=== PATIENT | male | born 1955 | race Caucasian/White ===

== ENCOUNTER 2019-01-26 06:11 | Day surgery (SDC) | payer OTHER ==
[~2019-01-26] VITALS: Ht 172.7 cm; Wt 70.6 kg
[~2019-01-26 06:11] MED LIST: CYAN100T2 PO; DULO60 PO; NAPR220; OLME20 PO; TAMS.4ER PO
--- NOTE | 2019-01-26 07:52 | NUR ---
"DAY SURGERY RN | ADMIT This RN did not have computer access d/t computer error, and had the assitance of Judy Flanagan RN, and Sarah MILLER to get the patient ready for surgery. [facility] and [facility] is currently in the OR."
--- NOTE | 2019-01-26 12:53 | NUR ---
01/26/19 1253 Perry Graham CHART EDITED.
--- NOTE | 2019-01-26 18:55 | NUR ---
SHIFT SUMMARY PT HAD PROCEDURE TODAY. PT DRESSING TO R KNEE CONT TO BE C/D/I. POLAR PAC BEEN IN PLACE. PT SLEPT FOR A WHILE AND WOKE UP IN PAIN. PT BEEN MED FOR PAIN PRN. PT ATTEMPTED TO VOID BUT WAS UNABLE, PT STILL UNABLE TO VOID WHILE STANDING AT SIDE OF BED. PT BLADDER SCAN WAS 325. DISCUSSED PT VOIDING/NAVA. PT REPORTS WILL TRY LATER. PT BEEN SLEEPING MOST OF DAY SINCE BACK FROM HAVING PROCEDURE. CALL LIGHT IN REACH. BED ALARM IN PLACE.
[2019-01-27 04:53] LABS: BASOPHILS ABSOLUTE AUTO 0.01 K/mm3 (0.00-0.23); BASOPHILS PERCENT AUTO 0 % (0-2); EOSINOPHILS PERCENT AUTO 0 % (0-6); Hematocrit 43.2 % (37.0-53.0); Hemoglobin 14.1 g/dL (13.5-17.5); IMMATURE GRAN ABSOLUTE AUTO 0.06 K/mm3 (0.00-0.10); IMMATURE GRAN PERCENT AUTO 1 % (0-1); LYMPHOCYTES PERCENT AUTO 8 % (21-46); MONOCYTES ABSOLUTE AUTO 1.18 K/mm3 (0.16-1.47); MONOCYTES PERCENT AUTO 9 % (4-13); Mean Corpuscular HGB Conc 32.6 g/dL (31.5-36.5); Mean Corpuscular Volume 89 fL (80-100); Mean Platelet Volume 10.9 fL (9.1-12.4); NEUTROPHILS ABSOLUTE AUTO 10.93 K/mm3 (1.96-9.15); NEUTROPHILS PERCENT AUTO 83 % (41-73); Platelet Count 165 K/mm3 (150-400); RDW Coefficient Variation 14.6 % (11.7-14.2); RDW Standard Deviation 47.5 fL (35.1-46.3); Red Blood Cell Count 4.87 M/mm3 (4.30-5.90); White Blood Cell Count 13.18 K/mm3 (4.00-11.30)
[2019-01-27 05:12] LABS: Bun/Creatinine Ratio 18.5 (12.0-20.0); Calcium, Blood 8.1 mg/dL (8.5-10.1); Creatinine, Blood 1.89 mg/dL (0.60-1.20); Magnesium, Blood 1.9 mg/dL (1.6-2.4); Potassium, Blood 4.3 mmol/L (3.5-5.5)
[2019-01-27] MEDS ORDERED: ACETAMINOPHEN500 MG PO (09:55)
[2019-01-27] MEDS ORDERED: ASPI325EC PO (09:56)
[2019-01-27] MEDS ORDERED: ROXICODONE5 MG PO (09:56)
--- NOTE | 2019-01-27 10:39 | NUR ---
THERAPY IN WITH PT.
--- NOTE | 2019-01-27 14:52 | NUR ---
PT IV OUT WNL. PT AND FAMILY REPORTS UNDERSTANDING OF DISHCARGE INSTRUCTIONS. PT FAMILY WISHES TO GO GET PAIN MEDICATION FILLED BEFORE PT LEAVING.
--- NOTE | 2019-01-27 15:34 | NUR ---
PT FAMILY HERE. PT NOW READY TO GO. PT MED WITH TYLENOL BEFORE LEAVING.
== END 2019-01-27 15:36 | disposition home or self-care (01) ==
LOC: ORSCMMR 06:11 → ORD 07:30 → SURS 11:39 → ORSCMMR 01-27 15:36 → SURS 01-27 15:36
PROVIDERS: Orthopaedic Surgery
PROC: 0SRC0J9 Replacement of Right Knee Joint with Synthetic Substitute, Cemented, Open Approach (ICD-10-PCS; principal; 2019-01-26 07:30)
DX: M17.11 Unilateral primary osteoarthritis, right knee (principal); N18.3 Chronic kidney disease, stage 3 (moderate); Z79.899 Other long term (current) drug therapy
CPT/HCPCS: 36415; 73560-RT; 80048; 83735; 85025; 88300; 97110; 97116; 97161; 97530; C1713; C1776; J0171; J0690; J0735; J1100; J1170; J1885; J2250; J2370; J2405; J2704; J2795; J7120

== ENCOUNTER 2023-03-19 12:47 | Day surgery (SDC) | payer MEDICARE ==
[~2023-03-19] VITALS: Ht 172.7 cm; Wt 68.8 kg
[~2023-03-19 12:47] MED LIST changes: +ACETAMINOPHEN500 MG PO; +ASPI325EC PO; +ROXICODONE5 MG PO
[2023-03-19] MEDS ORDERED: SUMA25 PO (13:19)
[2023-03-19] MEDS ORDERED: THERA-D2000 UNIT PO (13:20)
--- NOTE | 2023-03-19 13:33 | NUR ---
03/19/23 1333 Geovanna Cleveland TETRACAINE DROP GIVEN AT 1320 IN LEFT EYE. PLEDGET FOAM PLACED AT 1321 IN LEFT EYE. PT TOLERATED WELL. CALL LIGHT IN REACH.
[2023-03-19 14:29] VITALS: BP 109/73
--- NOTE | 2023-03-19 14:34 | NUR ---
03/19/23 1434 GÓMEZ JENSEN IV REMOVED AT 1434, CANULA INTACT, SITE WNL. PT TOLERATED PROCEDURE WELL.
== END 2023-03-19 14:41 | disposition home or self-care (01) ==
LOC: ORSCSDS 12:47
PROVIDERS: Ophthalmology
PROC: 08DK3ZZ Extraction of Left Lens, Percutaneous Approach (ICD-10-PCS; principal; 2023-03-19 14:00)
DX: H25.13 Age-related nuclear cataract, bilateral (principal); I12.9 Hypertensive chronic kidney disease with stage 1 through stage 4 chronic kidney disease, or unspecified chronic kidney disease; N18.30 Chronic kidney disease, stage 3 unspecified; E78.5 Hyperlipidemia, unspecified; Z79.899 Other long term (current) drug therapy
CPT/HCPCS: J2250; J3010; J3301; J7040; V2632

== ENCOUNTER 2023-03-26 13:08 | Day surgery (SDC) | payer MEDICARE ==
[~2023-03-26] VITALS: Ht 172.7 cm; Wt 69.1 kg
[~2023-03-26 13:08] MED LIST changes: +SUMA25 PO; +THERA-D2000 UNIT PO
--- NOTE | 2023-03-26 14:52 | NUR ---
03/26/23 1452 Judy Poole ORD.SUPA PERFORMED PREP. [facility] PREP SECTION DOESN'T RECOGNIZE PNEUMONIC.
[2023-03-26 15:23] VITALS: BP 110/75
== END 2023-03-26 15:35 | disposition home or self-care (01) ==
LOC: ORSCSDS 13:08
PROVIDERS: Ophthalmology
PROC: 08RJ3JZ Replacement of Right Lens with Synthetic Substitute, Percutaneous Approach (ICD-10-PCS; principal; 2023-03-26 14:30)
DX: H25.11 Age-related nuclear cataract, right eye (principal); H52.201 Unspecified astigmatism, right eye; Z96.1 Presence of intraocular lens; I12.9 Hypertensive chronic kidney disease with stage 1 through stage 4 chronic kidney disease, or unspecified chronic kidney disease; N18.30 Chronic kidney disease, stage 3 unspecified; Z79.899 Other long term (current) drug therapy
CPT/HCPCS: J1100; J2250; J2405; J3010; J3301; J7040; V2632

== ENCOUNTER 2024-06-10 08:32 | Day surgery (SDC) | payer MEDICARE ==
[2024-06-10] VITALS (18 sets, daily range): BP systolic 120–158; BP diastolic 67–96
[~2024-06-10] VITALS: Ht 170.2 cm; Wt 70.9 kg
[~2024-06-10 08:32] MED LIST changes: +Acetaminophen 500 MG Tab PO SCH; +CeFAZolin Sodium 2,000 MG in NS 100 ML IV SCH; +Chlorhexidine Mouth Care 15 ML UDC MT SCH; +Lactated Ringer's 1,000 ML IV SCH; +OxyCODONE HCL 10 MG TABCR PO SCH; +Ropivacaine 0.5% HCl/Pf 123.125 MG,EPINEPHrine HCL 0.25 MG,Ketorolac Tromethamine 15 MG... INFIL SCH; +Tranexamic Acid 100 ML IV SCH; +Vancomycin HCL 1,000 MG in NS 250 ML IV SCH
[2024-06-10] MEDS ORDERED: propofoL 0 ML IV ONE (09:04)
[2024-06-10] MEDS ORDERED: CeFAZolin Sodium 2,000 MG VIAL ONE ×2 (09:07→18:46)
[2024-06-10] MEDS ORDERED: NS 100 ML IV ONE ×2 (09:07→18:46)
[2024-06-10] MEDS ORDERED: SILDENAFIL CITR50 MG PO (09:49)
[2024-06-10] MEDS ORDERED: PROPRANOLOL HCL80 MG PO (09:50)
[2024-06-10] MEDS ORDERED: Lactated Ringer's 1,000 ML IV SCH (10:35)
[2024-06-10] MEDS ORDERED: Magnesium Hydroxide Conc 10 ML UDC PO PRN (10:35)
[2024-06-10] MEDS ORDERED: Ondansetron HCl 2 MG / ML 2ML Vial IV PRN (10:40)
[2024-06-10] MEDS ORDERED: HYDROmorphone HCl/Pf 1MG SYR IV PRN (10:40)
[2024-06-10] MEDS ORDERED: Metoclopramide HCl 5MG / ML 2ML Vial IV PRN (10:40)
[2024-06-10] MEDS ORDERED: OxyCODONE HCL 5 MG TAB PO PRN ×2 (10:40)
[2024-06-10] MEDS ORDERED: DiphenhydrAMINE HCL 25 MG Cap PO PRN (10:45)
[2024-06-10] MEDS ORDERED: Bisacodyl 10 MG Supp PR PRN (10:45)
[2024-06-10] MEDS ORDERED: Promethazine HCl 25 MG Tab PO PRN (10:45)
[2024-06-10] MEDS ORDERED: propofoL 20 ML IV ONE ×3 (10:45→12:06)
[2024-06-10] MEDS ORDERED: FentaNYL Citrate 50 MCG/ML 2 ML Injection ONE (10:46)
[2024-06-10] MEDS ORDERED: SUMAtriptan Succinate 25 MG Tab PO PRN (10:50)
[2024-06-10] MEDS ORDERED: Midazolam HCl 1MG / ML 2ML Vial ONE (10:57)
[2024-06-10] MEDS ORDERED: Ropivacaine 0.5% HCl/Pf 123.125 MG,EPINEPHrine HCL 0.25 MG,Clonidine HCl/Pf 40 MCG in N... INFIL SCH (11:15)
[2024-06-10] MEDS ORDERED: ePHEDrine Sulfate 50 MG/ML 1ML Injection ONE (11:16)
[2024-06-10] MEDS ORDERED: Vancomycin HCl 1000 MG ADDvantage ONE (11:18)
[2024-06-10] MEDS ORDERED: ROPIVACAINE 0.5% INFIL SCH (11:20)
[2024-06-10] MEDS ORDERED: EPINEPHRINE HCL INFIL SCH (11:20)
[2024-06-10] MEDS ORDERED: [UNRECOGNIZED DRUG - OTHER] INFIL SCH (11:20)
[2024-06-10] MEDS ORDERED: HCL INFIL SCH (11:20)
[2024-06-10] MEDS ORDERED: CLONIDINE HCL INFIL SCH (11:20)
[2024-06-10] MEDS ORDERED: Atropine Sulfate 0.4 MG/1 ML Vial ONE (11:23)
--- NOTE | 2024-06-10 11:42 | NUR ---
06/10/24 1142 Lara,Sayra SPINAL BLOCK COMPLETED BY UPON ENTRY TO OR. PATIENT TOLERATED WELL.
[2024-06-10] MEDS ORDERED: Ketorolac Tromethamine 15mg Vial IV SCH (12:00)
[2024-06-10] MEDS ORDERED: Ondansetron HCl 2 MG / ML 2ML Vial ONE (13:57)
[2024-06-10] MEDS ORDERED: Acetaminophen 500 MG Tab PO SCH (16:00)
[2024-06-10] MEDS ORDERED: CeFAZolin Sodium 2,000 MG in NS 100 ML IV SCH (19:00)
--- NOTE | 2024-06-10 19:39 | NUR ---
CATHETER ATTEMPTS TRIIED TWICE TO CATH PT D/T A BS OF >600. UNSUCCESSFUL ON BBOTH ATTEMPTS, FIRST WITH STRAIGHT CATH KIT AND THEN WITH 16 COUDE. PT VOIDED SM AMOUNT AFTER SECOND ATTEMPT. REPORTED OFF TO ONCOMING RN.
[2024-06-10] MEDS ORDERED: Docusate Sodium 100 MG Cap PO SCH (21:00)
[2024-06-10] MEDS ORDERED: Vancomycin HCL 1,000 MG in NS 250 ML IV SCH (22:30)
[2024-06-11] MEDS ORDERED: NS 100 ML IV ONE (03:08)
[2024-06-11] MEDS ORDERED: CeFAZolin Sodium 2,000 MG VIAL ONE (03:08)
[2024-06-11 04:13] VITALS: BP 140/77
[2024-06-11 04:35] LABS: BASOPHILS ABSOLUTE AUTO 0.02 K/mm3 (0.00-0.23); BASOPHILS PERCENT AUTO 0 % (0-2); EOSINOPHILS PERCENT AUTO 0 % (0-6); Hematocrit 45.1 % (37.0-53.0); Hemoglobin 14.9 g/dL (13.5-17.5); IMMATURE GRAN ABSOLUTE AUTO 0.04 K/mm3 (0.00-0.10); IMMATURE GRAN PERCENT AUTO 0 % (0-1); LYMPHOCYTES ABSOLUTE AUTO 0.76 K/mm3 (0.84-5.20); LYMPHOCYTES PERCENT AUTO 7 % (21-46); MONOCYTES ABSOLUTE AUTO 0.76 K/mm3 (0.16-1.47); MONOCYTES PERCENT AUTO 7 % (4-13); Mean Corpuscular HGB 29.7 pg (26.0-34.0); Mean Corpuscular Volume 90 fL (80-100); Mean Platelet Volume 10.7 fL (9.1-12.4); NEUTROPHILS ABSOLUTE AUTO 9.33 K/mm3 (1.96-9.15); NEUTROPHILS PERCENT AUTO 85 % (41-73); Platelet Count 174 K/mm3 (150-400); RDW Coefficient Variation 14.6 % (11.7-14.2); RDW Standard Deviation 48.3 fL (35.1-46.3); Red Blood Cell Count 5.01 M/mm3 (4.30-5.90); White Blood Cell Count 10.91 K/mm3 (4.00-11.30)
[2024-06-11 04:55] LABS: Bun/Creatinine Ratio 13.8 (12.0-20.0); Calcium, Blood 8.1 mg/dL (8.5-10.1); Creatinine, Blood 2.03 mg/dL (0.60-1.20); Magnesium, Blood 1.7 mg/dL (1.6-2.4); Potassium, Blood 4.5 mmol/L (3.5-5.5)
--- NOTE | 2024-06-11 05:11 | NUR ---
SHIFT SUMMARY POD 1 L TKA PT ABLE TO REST DURING THE NIGHT. PAIN MANAGED PER EMAR. TOLERATING PO INTAKE, HAVING GOOD OUTPUT SINCE BEGINING OF SHIFT. PT HAS NOT COMPLAINED OF PAIN DURING URINATION, OR PAIN CAUSED BY BLADDER DISTENTION. PT TRANSFER WITH 1P SBA, FWW AND GB. LLOYD AND GAUZE TO R KNEE ARE C/D/I. PLAN TO HAVE THERAPY IN THE AM, THEN D/C HOME. NO OTHER CONCERNS AT THIS TIME, CALL LIGHT WITHIN REACH
[2024-06-11 07:07] VITALS: BP 154/92
[2024-06-11] MEDS ORDERED: ASPI81CH PO (08:39)
[2024-06-11] MEDS ORDERED: OXYC5 PO (08:40)
[2024-06-11] MEDS ORDERED: PROM25 PO (08:41)
[2024-06-11] MEDS ORDERED: SULTRIDS PO (08:42)
[2024-06-11] MEDS ORDERED: Aspirin 81 MG Chew PO SCH (09:00)
[2024-06-11] MEDS ORDERED: Cholecalciferol 1000 Unit Tablet (=25MCG) PO SCH (09:00)
[2024-06-11] MEDS ORDERED: Losartan Potassium 25 MG Tab PO SCH (09:00)
[2024-06-11] MEDS ORDERED: Cyanocobalamin 100 MCG Tab PO SCH (09:00)
[2024-06-11] MEDS ORDERED: Propranolol HCL 80 MG CAPCR PO SCH (09:00)
[2024-06-11] MEDS ORDERED: Trimethoprim/Sulfamethoxazole DS Tab PO SCH (09:00)
[2024-06-11 11:04] VITALS: BP 154/92
--- NOTE | 2024-06-11 11:46 | NUR ---
DISCHARGE PT PROVIDED WITH WRITTEN AND VERBAL DISCHARGE INSTRUCTIONS, HE REPORTED UNDERSTANDING. CLEAN DRESSINGS PROVIDED. PT CLEARED THERAPY, PAIN MANAGED AND PT ABLE TO VOID/ BP HAS TRENDED UPWARD SINCE ADMIT EVEN AFTER ANTIHYPERTENSIVES WERE GIVEN WITH AM MEDS. PT EDUCATED REGARDING BP TREND AND INSTRUCTED TO TAKE AND RECORD BP 2X PER DAY WHILE AT HOME. PT EDUCATED REGARDING NORMAL BP READINGS, AND TO MAKE AN APPOINTMENT WITH PCP IF BLOOD PRESSURE REMAINS ELEVATED. PT ALSO CONTINUES TO BE NAUSEATED, HE IS ABLE TO HYDRATE WITH WATER BUT HAS BEEN UNABLE TO KEEP FOOD DOWN. PT STATES N/V IS NORMAL FOR HIM AT BASELINE AND AFTER SURGERY. WAITING FOR RETURN COMMUNICATION REGARDING BP AND N/V CONCERNS FROM DR. POLK. PT DID NOT WISH TO REMAIN IN THE HOSPITAL FOR RETURN COMMUNICATION WITH DR. POLK, PT DISCHARGED HOME AT APPROXIMATELY 1145.
--- NOTE | 2024-06-11 11:56 | NUR ---
DR. POLK NOTIFIED OF N/V AND BP CONCERNS. PT DISCHARGED PRIOR TO THIS COMMUNICATION.
== END 2024-06-11 11:45 | disposition home or self-care (01) ==
LOC: ORSCMMR 08:32 → ORD 10:45 → ORSCMMR 10:45 → SURS 14:09 → ORSCMMR 06-11 11:45
PROVIDERS: Orthopaedic Surgery
PROC: 0SRD0J9 Replacement of Left Knee Joint with Synthetic Substitute, Cemented, Open Approach (ICD-10-PCS; principal; 2024-06-10 10:45)
DX: M17.12 Unilateral primary osteoarthritis, left knee (principal); Z96.651 Presence of right artificial knee joint; I12.9 Hypertensive chronic kidney disease with stage 1 through stage 4 chronic kidney disease, or unspecified chronic kidney disease; N18.30 Chronic kidney disease, stage 3 unspecified; Z79.899 Other long term (current) drug therapy
CPT/HCPCS: 36415; 73560-LT; 80048; 83735; 85025; 97110; 97116; 97162; A9270; C1713; C1776; J0171; J0461; J0690; J0735; J1170; J1885; J2250; J2405; J2704; J2795; J3010; J3370; J7050; J7120

== ENCOUNTER 2025-02-15 12:10 | Day surgery (SDC) | payer MEDICARE ==
[~2025-02-15] VITALS: Ht 172.7 cm; Wt 73.1 kg
[~2025-02-15 12:10] MED LIST changes: +ASPI81CH PO; -Acetaminophen 500 MG Tab PO SCH; -CeFAZolin Sodium 2,000 MG in NS 100 ML IV SCH; -Chlorhexidine Mouth Care 15 ML UDC MT SCH; -Lactated Ringer's 1,000 ML IV SCH; +OXYC5 PO; -OxyCODONE HCL 10 MG TABCR PO SCH; +PROM25 PO; +PROPRANOLOL HCL80 MG PO; -Ropivacaine 0.5% HCl/Pf 123.125 MG,EPINEPHrine HCL 0.25 MG,Ketorolac Tromethamine 15 MG... INFIL SCH; +SILDENAFIL CITR50 MG PO; +SULTRIDS PO; -Tranexamic Acid 100 ML IV SCH; -Vancomycin HCL 1,000 MG in NS 250 ML IV SCH
[2025-02-15] MEDS ORDERED: CeFAZolin Sodium 2,000 MG VIAL ONE (12:24)
[2025-02-15] MEDS ORDERED: SUMA25 PO (12:43)
[2025-02-15] MEDS ORDERED: OLME5TAB PO (12:43)
[2025-02-15] MEDS ORDERED: Lactated Ringer's 1,000 ML IV ONE (12:57)
[2025-02-15] MEDS ORDERED: ePHEDrine Sulfate 50 MG/ML 1ML Injection ONE (13:03)
[2025-02-15] MEDS ORDERED: Midazolam HCl 1MG / ML 2ML Vial ONE (13:43)
--- NOTE | 2025-02-15 13:43 | NUR ---
02/15/25 1343 Ag Kaminski TIME OUT WITH DR POLK FOR LOCAL. PT TOLERATED WELL.
[2025-02-15] MEDS ORDERED: propofoL 20 ML IV ONE (13:55)
[2025-02-15] MEDS ORDERED: Dexamethasone Sod Phos 10 MG/ML 1ML VIAL ONE (14:00)
[2025-02-15] MEDS ORDERED: Ondansetron HCl 2 MG / ML 2ML Vial ONE (14:00)
[2025-02-15 14:13] VITALS: BP 125/80
--- NOTE | 2025-02-15 14:25 | NUR ---
02/15/25 3227 ELI LE AT BEDSIDE, PT TOLERATING APPLE JUICE AND STRING CHEESE. DENIES PAIN AND NAUSEA
== END 2025-02-15 14:34 | disposition home or self-care (01) ==
LOC: ORSCSDS 12:10
PROVIDERS: Orthopaedic Surgery
PROC: 01N50ZZ Release Median Nerve, Open Approach (ICD-10-PCS; principal; 2025-02-15 13:45)
DX: G56.01 Carpal tunnel syndrome, right upper limb (principal); I12.9 Hypertensive chronic kidney disease with stage 1 through stage 4 chronic kidney disease, or unspecified chronic kidney disease; N18.9 Chronic kidney disease, unspecified; Z79.899 Other long term (current) drug therapy
CPT/HCPCS: J0690; J1100; J2250; J2405; J2704; J7120